=== PATIENT | female | born 1965 | race Caucasian/White ===

== ENCOUNTER 2025-06-06 17:47 | Emergency (ER) | payer BC, OTHER ==
[~2025-06-06] VITALS: Ht 172.7 cm; Wt 67.6 kg
--- NOTE | 2025-06-06 17:59 | ELECTROCARDIOGRAPH REPORT ---
[facility] Test Date: 2025-06-06 Test Time: 17:57:33 Pat Name: SURI HAMM Department: [facility]-ER Patient ID: [facility]-[id number] Room: Gender: F [employer] Operator: : [id number] Requested By: INNA MOODY Order Number: [id number] Reading MD: Measurements Intervals [place] Rate: 80 P: 82 NV: 122 QRS: 62 QRSD: 89 T: 87 QT: 507 QTc: 585 Interpretive Statements Sinus rhythm Nonspecific repol abnormality, lateral leads Prolonged QT interval Please click the below link to view image of tracing.
[2025-06-06 18:02] VITALS: BP 148/79; PULSE 74; RESP 18; O2SAT 98
[2025-06-06 18:31] LABS: MEAN PLATELET VOLUME 8.1 FL (7.4-10.4); RED CELL DISTRIBUTION WIDTH 13.4 % (11.5-14.5)
--- NOTE | 2025-06-06 18:42 | RADIOLOGY REPORT ---
CLINICAL HISTORY: CP TECHNIQUE: Single view of the chest was obtained. COMPARISON: None FINDINGS: The heart size and pulmonary vasculature are normal. The lungs are clear. 2 needles project over the lower thoracic spine, which may be external to the patient. Please correlate with clinical exam. IMPRESSION: NO ACUTE CARDIOPULMONARY PROCESS.
[2025-06-06 18:59] LABS: CREATININE 0.79 MG/DL (0.40-0.90); PRO BRAIN NATRIURETIC PEPTIDE 70 PG/ML (0-125); TOTAL CARBON DIOXIDE 29.4 MMOL/L (24-32); eCRCL 78 ML/MIN; eGFR 75 ML/MIN
--- NOTE | 2025-06-06 20:41 | Physician Documentation ---
History of Present Illness ~ Chief Complaint: Chest Pain Stated Complaint: CHEST PAIN Time Seen by MD: 20:55 HPI This is a 59-year-old female who presents with 1 hour of left-sided dull nonradiating chest pain, patient reports pain is in left lateral chest wall. Patient reports no increased shortness of breath. Patient reports onset of pain while at rest. Allergies: Coded Allergies: No Known Allergies (Unverified , 06/06/25) Active Prescriptions See Medication Reconciliation Form. Review of Systems ROS As stated above in the HPI, otherwise all systems are reviewed and negative. Physical Exam Vital Signs: Temperature: 97.6, Source: Temporal, Heart Rate: 74, Respiratory Rate: 18, BP: 148/79, Pulse Oximetry: 98, Weight: 67.600 Oxygen Flow Rate: 0 Physical Exam VITALS: Reviewed and as above. GENERAL: Alert, nontoxic appearing, no apparent distress. HEENT: RESPIRATORY: No increased work of breathing, no respiratory distress, speaking in full clear sentences CHEST: CV: BACK: GI: MUSCULOSKELETAL: SKIN: NEURO: PSYCH: Progress Results/Orders Results/Orders Vital Signs 06/06/25 18:02 Temp 97.6 Pulse 74 Resp 18 B/P (MAP) 148/79 Pulse Ox 98 O2 Flow Rate 0 Laboratory Tests Test 06/06/25 18:09 06/06/25 20:16 White Blood Count 5.3 Red Blood Count 4.31 Hemoglobin 13.0 Hematocrit 38.3 Mean Corpuscular Volume 88.8 Mean Corpuscular Hemoglobin 30.0 Mean Corpuscular Hemoglobin Concent 33.8 Red Cell Distribution Width 13.4 Platelet Count 305 Mean Platelet Volume 8.1 Neutrophils (%) (Auto) 56.6 Lymphocytes (%) (Auto) 33.0 Monocytes (%) (Auto) 8.3 Eosinophils (%) (Auto) 1.3 Basophils (%) (Auto) 0.8 Neutrophils # (Auto) 3.0 Lymphocytes # (Auto) 1.7 Monocytes # (Auto) 0.4 Eosinophils # (Auto) 0.1 Basophils # (Auto) 0.0 CBC Comment Sodium Level 138 Potassium Level 3.9 Chloride Level 101 Carbon Dioxide Level 29.4 Anion Gap 8 Blood Urea Nitrogen 12 Creatinine 0.79 Estimated GFR/1.73 m2 75 BUN/Creatinine Ratio 15.2 Glucose Level 81 Calcium Level 9.3 Troponin I High Sensitivity 4 6 Pro-B-Type Natriuretic Peptide 70 Albumin 4.3 Chemistry Comments Troponin I High Sens Percent Delta 50 Troponin I Hi Sens Absolute Change 2 Medical Decision Making Findings MSE performed in triage and patient returned to ED lobby by nursing staff to await available ED room. Labs and EKG initiated, initial EKG in triage did not demonstrate acute STEMI. I discussed all laboratory findings x-ray EKG with the patient which were all unremarkable. On my interview with the patient I do suspect that this may have been stress or anxiety induced. States she has had a very difficult day. I reassured her and advised her to return if she has any worsening symptoms for further evaluation Differential Dx:Considerations: Include: Chest wall contusion, Flail chest, Myocardial contusion, Pneumothorax, Pulmonary contusion, Rib fracture, Renal contusion, Splenic fracture, Tension pneumothorax, Other Departure Disposition: HOME / SELF CARE / HOMELESS Impression: Primary Impression: Tenderness of chest wall Additional Impression: Anxiety Discharge Instructions: Generalized Anxiety Disorder, Adult, Nonspecific Chest Pain, Adult Referrals: NO PRIMARY CARE PROVIDER (PCP) Prescriptions Hydroxyzine Hcl (Atarax) 25 Mg Tablet 1 TAB PO Q12H for anxiety for 30 Days, #60 TAB 0 Refills Prov: DARYN SANTANA NP 06/06/25 Education Educated: Patient Educated regarding: diagnosis Signature Scribe Signature: bn Attestation: Scribed for Daryn Santana Sales Driver by Daryn Santana - PIYUSH . 06/06/25 21:21 INNA MOODY Jun 06, 2025 20:40 DARYN SANTANA NP Jun 06, 2025 21:21
[2025-06-06] MEDS ORDERED: HYDR-3686 PO (21:21)
[2025-06-06 21:28] VITALS: TEMP 97.6
== END 2025-06-06 21:33 | disposition home or self-care (01) ==
LOC: ER 17:48
DX: R07.9 Chest pain, unspecified (principal); F41.9 Anxiety disorder, unspecified
CPT/HCPCS: 36415; 71045; 80048; 83880; 84484; 85025; 93005; 99285